=== PATIENT | female | born 1955 | race Caucasian/White ===

== ENCOUNTER 2016-12-12 11:41 | Day surgery (SDC) | payer OTHER ==
[2016-12-12] MEDS ORDERED: LACTATED RINGERS 1,000 ML ONE (11:57)
[2016-12-12] MEDS ORDERED: CEFAZOLIN SODIUM 2 GRAM PREMIX 100 ML IV ONE (11:58)
[2016-12-12] MEDS ORDERED: IV START KIT ONE (11:58)
[2016-12-12] MEDS ORDERED: CEFAZOLIN SODIUM 2 GRAM PREMIX 100 ML IV PRN (12:00)
[2016-12-12] MEDS ORDERED: DEXAMETHASONE SOD PHOS 10 MG/1 ML VIAL ONE (13:15)
[2016-12-12] MEDS ORDERED: LIDOCAINE 1% (PRES FREE) 30 ML VIAL ONE (13:16)
[2016-12-12] MEDS ORDERED: BUPIVACAINE 0.5% (PRES FREE) 30 ML VIAL ONE (13:16)
[2016-12-12] MEDS ORDERED: DESMOPRESSIN ACETATE 30 MCG in SODIUM CHLORIDE 0.9% 50 ML IV SCH (13:45)
[2016-12-12] MEDS ORDERED: MIDAZOLAM HCL 1 MG/ML 2ML VIAL ONE (14:17)
[2016-12-12] MEDS ORDERED: PROPOFOL 40 ML IV ONE (14:21)
[2016-12-12] MEDS ORDERED: LIDOCAINE 2% (PRES FREE) 5 ML VIAL ONE (14:21)
[2016-12-12] MEDS ORDERED: KETAMINE HCL UD SYRINGE 100 MG/2 ML IV ONE (14:54)
[2016-12-12] MEDS ORDERED: PROPOFOL 20 ML IV ONE ×5 (14:54→15:55)
[2016-12-12] MEDS ORDERED: METOPROLOL TARTRATE 1 MG/ML 5ML VIAL ONE (15:03)
[2016-12-12] MEDS ORDERED: OXYCODONE/ACETAMINOPHEN 5/325 MG TABLET PO PRN (16:37)
[2016-12-12] MEDS ORDERED: OXYCODONE/ACETAMINOPHEN 5/325 MG TABLET ONE (16:51)
--- NOTE | 2016-12-12 17:00 | RAD ---
FOOT - LEFT 2 VIEW COMPARISON: Left foot 3 views, 08/21/2016 HISTORY: Hallux valgus. Left Lapidus bunionectomy and hallux osteotomy. Intraoperative radiograph. FINDINGS: Views: Left foot dorsal plantar view of the left first metatarsal.. Bones: Osteotomy at the base of the left first metatarsal with correction of hallux valgus and placement of a lag screw and in process placement of a plate and additional screws across the first carpometacarpal joint. Joints: Normal Soft tissues: Normal IMPRESSION: 1. Intraoperative dorsal plantar radiograph of the left foot showing intraoperative correction of hallux valgus with proximal first metatarsal osteotomy and hardware placement.
--- NOTE | 2016-12-12 17:04 | RAD ---
FOOT - LEFT 2 VIEW COMPARISON: Left foot one view 12/12/2016 at 14:55 HISTORY: Hallux valgus. Osteotomy and bunionectomy. FINDINGS: Views: Left foot dorsoplantar and lateral. Bones: Correction of hallux valgus. Osteotomy of the proximal first metatarsal. Surgical ankylosis with plate and screws across the first carpometacarpal joint. First metatarsal bunionectomy. Joints: Normal Soft tissues: Skin pat of the dorsal medial foot, from the medial cuneiform to the base of the great toe. IMPRESSION: 1. Correction of hallux valgus of the left foot using a osteotomy of the proximal first metatarsal and bunionectomy of the distal first metatarsal.
--- NOTE | 2016-12-13 13:19 | OP ---
SEBAS DYER [id number] : 1955 DATE OF SURGERY: December 12, 2016 PREOPERATIVE DIAGNOSIS: Hallux abducto valgus left foot. POSTOPERATIVE DIAGNOSIS: Hallux abducto valgus left foot. PROCEDURES: LAPIDUS TYPE BUNIONECTOMY OF LEFT FOOT. SURGEON: Fausto Steven D.P.M. ANESTHESIA: Monitored anesthesia care (MAC) sedation with local. HEMOSTASIS: Pneumatic tourniquet about left ankle. ESTIMATED BLOOD LOSS: Less than 30 mL. COMPLICATIONS: None. PATHOLOGY: No specimens sent to pathology. INDICATIONS FOR PROCEDURE: Patient is a 61-year-old female who presented to the [facility] for planned surgery to the left foot due to painful bunion deformity hallux abducto valgus. Patient has had a longstanding complaint for several years with progressive worsening and enlarging of bunion deformity. Patient's bunion deformity is significantly larger with greater than 20 degrees of intermetatarsal angle needing correction down at base. PROCEDURE: The patient was brought to the operating room via gurney and placed on the operating room table in supine position. Following administration of IV sedation by anesthesiologist, focal anesthetic was infiltrated in the surgical area. Patient was sterilely prepped and draped in the usual sterile manner. An Esmarch bandage was used to exsanguinate the left lower extremity and tourniquet was inflated to 250 mmHg. Attention was directed to the left foot where a longitudinal linear incision was made overlying the dorsal medial aspect of the left foot extending from the base of the hallux proximally down to the first metatarsal cuneiform joint. Dissection was carried down to the deeper tissue care taken to identify and track all vital neurovascular structures. Capsulotomy was performed at the head of the first metatarsal medially and all soft tissues attached to this were reflected off the head of the first metatarsal at the base of the proximal phalanx. The incision was then extended along the soft tissue periosteum and down to the level of the first metatarsal cuneiform joint. Soft tissues attached were then reflected off of those areas down to bone exposing the joint, medial cuneiform and first metatarsal base. Adductor tendon was then released at the lateral aspect along with lateral capsulotomy of the first metatarsophalangeal joint. With use of sagittal saw, articular surfaces of the first metatarsal cuneiform joint were then resected and completely removed. Area of the medial cuneiform was angled in such a way with the sagittal saw cut to allow for reduction of intermetatarsal angle. Appropriate amount at the base of the lateral aspect of the first metatarsal was also resected from dorsal to plantar allowing for reduction of the angle of the base of the first metatarsal. With cannulation pin from [employer] screw set with first metatarsal cuneiform joint now held in appropriate opposition to each other following removal of articular surfaces and angulated cut, it was noted that good reduction of the intermetatarsal angle was then achieved with fluoroscopy assistance. A 24 mm 3.0 Trilliant screw was then placed over the cannulation pin and inserted into position at the dorsal aspect of the first metatarsal base going into the medial cuneiform. Cannulation pin was then removed. Four-holed P plate was then placed at the medial aspect of the first metatarsal cuneiform osteotomy with use of OrthoHelix mini plate locking screw set. Plate was placed at the medial aspect of the joint and four screws were then put into position, three locking, one nonlocking 2.0 14 mm screws. Good screw purchase was noted with stable fixation. Fluoroscopy imaging was used after placement of the cannulation pin and plate with a couple of screws in opposition. Good reduction was achieved with use of sagittal saw. Medial eminence of the first metatarsal head was then resected medially with appropriate amount and all areas were then rasped smooth. It was noted that good reduction of the deformity was achieved. The area was copiously flushed with sterile normal saline. Capsulorrhaphy was performed. Deep tissue closed with #4-0 Vicryl suture. Skin then closed with skin pat. Area dressed with Xeroform, 4 x4, ABD pad, Rebeca and Larry compression wrap. Due to patient's bleeding history with Von Willebrand's disease, patient was placed into CAM walker boot as opposed to cast due to bleeding possibility and greater stability and protection with a boot versus a posterior splint. Patient will be strict nonweightbearing with knee roller scooter which patient has. Patient tolerated procedure and anesthesia well and was transported to the postoperative recovering room with vital signs stable and vascular status intact to left lower extremity. Following a period of postoperative monitoring in recovery patient will be discharged to home. Patient has written postoperative instructions that were given at preoperative visit along with postoperative pain management medications. That prescription was given at preoperative visit. Patient has instructions for followup this coming Thursday at [place] office for postoperative check and dressing change. Also noted that patient prior to surgery in preoperative area received desmopressin to assist in any bleeding issues due to von Willebrand's disease.
== END 2016-12-12 17:39 | disposition home or self-care (01) ==
LOC: SDC 11:41
PROVIDERS: ATTEND Podiatrist
PROC: 0QSP0ZZ Reposition Left Metatarsal, Open Approach (ICD-10-PCS; principal; 2016-12-12)
DX: M20.12 Hallux valgus (acquired), left foot (principal); M21.612 Bunion of left foot; D68.0 Von Willebrand disease; E03.9 Hypothyroidism, unspecified; Z88.6 Allergy status to analgesic agent
CPT/HCPCS: 76000; 73620 ×2; 86920; 86922; 86921; 86901; 86850 ×3; 28296; J2597; J1100; A9270; J2250; J2001; J7120; J7050; J0690